=== PATIENT | male | born 1990 | race Two or more races ===

== ENCOUNTER 2022-12-07 16:20 | Outpatient (AMB) | payer OTHER, SELFPAY ==
--- NOTE | 2022-12-07 16:20 | MHC.PC.OV ---
Vital Signs 12/07/22 16:21 12/07/22 16:52 Height 5 ft 9 in Weight 198 lb BMI 29.2 BP 146/80 H 132/80 Blood Pressure Location Lt brachial Lt brachial Position Sitting Sitting Pulse 77 Pulse Source Pulse Oximeter Temp Source Skin Pulse Oximetry (%) 100 Oxygen Delivery Method Room Air Intake Visit Reasons: Annual PE Intake Note: Patient is here today for a physical. 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 Last seen by [facility] Santana in 2019. Medical history significant for high cholesterol-patient reports that he was on simvastatin and he stopped taking it long time ago due to feeling drowsy and sleepy, hypertension. Patient has an upcoming eye exam. Dentist up-to-date. Tetanus vaccine up-to-date. Patient reports that his mother has Alzheimer's and he would like to be tested for this as well, reports concussions in childhood. Denies memory changes. Denies shortness of breath or chest pain. [facility] Medical History History of concussion High cholesterol Surgical History No pertinent past surgical history Family History Father History of open heart surgery Mother No problems noted. Social History Patient Tobacco Use Status: Never used Tobacco service: No Cognitive needs: No Hearing needs: No Vision needs: No Questionnaire PHQ-9 Over the last 2 weeks, how often have you been bothered by any of the following problems? 1. Little interest or pleasure in doing things: not at all 2. Feeling down, depressed, or hopeless: not at all 3. Trouble falling or staying asleep, or sleeping too much: not at all 4. Feeling tired or having little energy: not at all 5. Poor appetite or overeating: not at all 6. Feeling bad about yourself - or that you are a failure or have let yourself or your family down: not at all 7. Trouble concentrating on things, such as reading the newspaper or watching television: not at all 8. Moving or speaking so slowly that other people could have noticed. Or the opposite - being so fidgety or restless that you have been moving around a lot more than usual: not at all 9. Thoughts that you would be better off or of hurting yourself in some way: not at all Total score: 0 Depression Screening Interpretation: Negative 36497 - PHQ-9 Billing: Yes Source: Developed by Drs. Yohannes Fabian, Nelly Gill, Brendan Handley and colleagues, with an educational joyce from [employer]. Thrive Questionnaire Date Thrive assessed: 12/07/22 I am a: Patient What is your living situation today?: I have a steady place to live Within the past 12 months, did the food you bought not last and you didn't have the money to get more?: Never true Within the past 12 months, did you worry whether your food would run out before you got money to buy more?: Never true Do you have trouble paying for medicines?: No Do you have trouble getting transportation to medical appointments?: No Do you have trouble paying your heating and electricity bill?: No Do you have trouble taking care of your child, family member or friend?: No Do you have trouble with day-to-day activities such as bathing, preparing meals, shopping, managing finances, etc.?: No Are you currently unemployed and looking for a job?: No Are you interested in more education?: No Currently or been in a relationship where the following occur: no concerns reported AUDIT C Alcohol Use Questionnaire (AUDIT-C) 1. How often do you have a drink containing alcohol?: Never 3. How often do you have six or more drinks on one occasion?: Never Total Score: 0 Score Reviewed/Action Taken: No BOBO-7 AMB Questionnaire BOBO-7 Date BOBO - 7 assessed: 12/07/22 Feeling nervous, anxious, or on edge: 0 = Not at all Not being able to stop or control worryin = Not at all Worrying too much about different things: 0 = Not at all Trouble relaxin = Not at all Being so restless that it is hard to sit still: 0 = Not at all Becoming easily annoyed or irritable: 0 = Not at all Feeling afraid as if something awful might happen: 0 = Not at all Total BOBO-7 score (0-4 normal; 5-9 mild; 10-14 moderate; 15-21 severe): 0 Source: Developed by Drs. Yohannes Fabian, Nelly Gill, Brendan Handley and colleagues, with an educational joyce from [employer]. BOBO-7 Assessment Billing BOBO-7 Assessment Tool: BOBO-7 Assessment 33153 Review of Systems Const Denies body aches, Denies chills, Denies fever(s) and Denies headache(s) Eyes Denies blurry vision and Denies change in vision ENT Denies dizziness, Denies otalgia, Denies headache(s), Denies nasal discharge, Denies sinus pain and Denies sore throat Card Denies chest pain, Denies edema, Denies lightheadedness and Denies dyspnea Resp Denies cough, Denies dyspnea and Denies wheezing GI Denies abdominal pain, Denies constipation, Denies diarrhea, Denies nausea and Denies vomiting Denies dysuria Musc Denies myalgias Skin/Breast Denies rash Neuro Denies dizziness and Denies headache(s) Aller/Immun Denies wheezing Physical exam (Primary Care) Vital Signs: Last Vital Signs Pulse 77 12/07/22 16:21 BP 132/80 12/07/22 16:52 Pulse Ox 100 12/07/22 16:21 Oxygen Delivery Method Room Air 12/07/22 16:21 BMI result Body Mass Index 29.2 Tobacco/Smoking Status: Tobacco use Status Tobacco use date assessed 12/07/22 12/07/22 16:22 Patient Tobacco Use Status Never used Tobacco 12/07/22 16:22 PHQ-9: PHQ-9 Score PHQ-9: Total score 0 12/07/22 16:43 Depression Screening Interpretation: Negative Thrive Assessment: Date of Thrive Assessment Date Thrive assessed 12/07/22 12/07/22 16:22 Currently or been in a relationship where the following occur: no concerns reported Const General: cooperative and no acute distress Orientation/consciousness: patient oriented x3 HENMT Head: Yes normocephalic and Yes atraumatic Ears: TM's normal bilaterally Face and sinus: Yes sinuses nontender Mouth: oropharynx normal and moist mucous membranes Throat: Yes posterior oropharynx normal Eyes General: appearance normal, both eyes and all related structures Pupils: Equal, round and reactive pupils present EOM: EOMs intact bilaterally Neck Neck: Yes normal visual inspection, Yes full ROM and Yes no lymphadenopathy Thyroid: Thyroid normal Resp Effort & Inspection: normal respiratory effort and able to speak in complete sentences Auscultation: clear to auscultation bilaterally, no crackles, no rales, no rhonchi and no wheezes Cardio Rate: regular rate Rhythm: regular rhythm Heart sounds: S1 normal heart sound present, S2 normal heart sound present and no murmurs GI Palpation (GI): Soft to palpation, not firm, nontender, no guarding, not rigid and no hepatosplenomegaly Auscultation: normal bowel sounds General: No CVA tenderness Back/Spine/Pelvis Back: No CVA tenderness Skin General skin exam: no rashes or lesions noted Neuro General: patient oriented x3 Cranial nerves: Yes Equal, round and reactive pupils present Gait exam (Neuro): Normal gait present Extrem General: Yes full ROM and No edema Assessment and Plan Assessment & Plan (1) Family history of Alzheimer's disease: Code(s): Z82.0 - Family history of epilepsy and other diseases of the nervous system Plan: Neurology referral for testing per patient's request (2) HTN (hypertension): Code(s): I10 - Essential (primary) hypertension Plan: Goal BP equal or less than 140/90 Continue hydrochlorothiazide Low-sodium diet (3) High cholesterol: Code(s): E78.00 - Pure hypercholesterolemia, unspecified Plan: Low-cholesterol diet Will check lipid panel (4) Annual physical exam: Code(s): Z00.00 - Encounter for general adult medical examination without abnormal findings Orders: Orders Vitamin B12 and Folate 12/07/22 I10 - Essential (primary) hypertension TSH reflex Free T4 09/22/23 I10 - Essential (primary) hypertension Lipid Panel 12/07/22 E78.00 - Pure hypercholesterolemia, unspecified Comprehensive [place]. Panel Fast 12/07/22 I10 - Essential (primary) hypertension Complete Blood Count Auto Diff 12/07/22 I10 - Essential (primary) hypertension Vitamin D 25-OH Total 12/07/22 I10 - Essential (primary) hypertension Referrals Neurology Referral Z82.0 - Family history of epilepsy and other diseases of the nervous system Medications: Refilled hydrochlorothiazide 12.5 mg PO QAM 90 tabs 1RF 90 days I10 - Essential (primary) hypertension Coding Level of Care Code Est Pt Prev Care 18-39y([id number]) Diagnoses Family history of Alzheimer's disease Z82.0 HTN (hypertension) I10 High cholesterol E78.00 Annual physical exam Z00.00 Additional Codes BOBO-7 Assessment Billing - BOBO-7 Assessment Tool: BOBO-7 Assessment 31300 ([id number])
[2022-12-07 16:21] VITALS: BP 146/80; PULSE 77; O2SAT 100; BMI 29.2
[2022-12-07 16:52] VITALS: BP 132/80
== END 2022-12-07 17:17 | disposition home or self-care (01) ==
PROVIDERS: PCP Physician Assistant; Visit Provider Nurse Practitioner Family
DX: Z82.0 Family history of epilepsy and other diseases of the nervous system (principal); I10 Essential (primary) hypertension; E78.00 Pure hypercholesterolemia, unspecified; Z00.00 Encounter for general adult medical examination without abnormal findings
CPT/HCPCS: 99395

== ENCOUNTER 2023-04-01 07:11 | Outpatient (REF) | payer OTHER, SELFPAY ==
[2023-04-01 07:25] LABS: MANUAL DIFF FLAG NO
[2023-04-01 07:47] LABS: Basophils Percent Auto 0.6 % (0-2); Eosinophils Absolute Auto 0.1 X10*3/uL (0.0-0.4); Eosinophils Percent Auto 1.8 % (0-4); Hemoglobin 15.5 g/dl (14.0-18.0); Imm Gran Abs Auto 0.02 X10*3/uL (0.00-0.03); Imm Gran Pct Auto 0.3 % (0.0-0.4); Lymphocytes Absolute Auto 2.5 X10*3/uL (1.2-4.9); Lymphocytes Percent Auto 36.3 % (20-40); Mean Corpuscular Hemoglobin 28.7 pg (27.0-33.0); Mean Corpuscular Volume 86.9 fL (80.0-98.0); Mean Platelet Volume 10.2 fL (9.4-12.4); Monocytes Absolute Auto 0.3 X10*3/uL (0.1-1.2); Neutrophils Absolute Auto 3.8 x10*3/uL (2.0-8.3); Platelet Count 339 X10*3/uL (160-400); Red Blood Count 5.41 X10*6/uL (4.60-5.80); Red Cell Distribution Width 12.6 % (11.0-16.0); White Blood Count 6.8 X10*3/uL (4.8-10.8)
[2023-04-01 08:07] LABS: Alanine Aminotransferase 50 U/L (0-40); Albumin Level 4.6 g/dL (3.5-5.0); Alkaline Phosphatase 61 U/L (39-117); Anion Gap 13 (12-20); Aspartate Amino Transferase 24 U/L (5-37); Bilirubin Total 0.6 mg/dL (0.0-1.0); Blood Urea Nitrogen 15 mg/dL (9-16); Calcium 10.1 mg/dL (8.4-10.2); Carbon Dioxide 29 mmol/L (22-29); Chloride 103 mmol/L (96-108); Cholesterol 192 mg/dL (<200); Estimated Glomerular Filt Rate > 60; Glucose Fasting 92 mg/dL (60-99); HDL Cholesterol 40 mg/dL (>40); LDL Cholesterol Calculated 127 mg/dL (<100); Potassium 4.1 mmol/L (3.3-5.1); Sodium 141 mmol/L (135-145); Total Protein 8.1 g/dL (6.5-8.0); Triglycerides 125 mg/dL (<150)
[2023-04-01 08:21] LABS: Creatinine Urine 267.95 mg/dL; Microalbum/Creatinine Ratio Ur 5.9 ug/mg cr (<30)
[2023-04-01 08:25] LABS: TSH reflex Free T4 1.37 uIU/mL (0.32-4.0); Vitamin D 25-OH Total 38.7 ng/mL (>30)
[2023-04-01 08:38] LABS: Folate 12.7 ng/mL (> or = 4.0); Vitamin B12 367 pg/mL (200-900)
== END 2023-04-01 07:12 | disposition home or self-care (01) ==
LOC: HO.LAB 07:11
PROVIDERS: Nurse Practitioner Family; PCP Physician Assistant; Visit Provider Physician Assistant
DX: I10 Essential (primary) hypertension (principal); E78.00 Pure hypercholesterolemia, unspecified
CPT/HCPCS: 36415; 80053; 80061; 82043; 82306; 82570; 82607; 82746; 84443; 85025

== ENCOUNTER 2023-04-19 14:50 | Outpatient (AMB) | payer OTHER, SELFPAY ==
--- NOTE | 2023-04-19 15:00 | A.OFFVIS_ITS ---
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 His mother has it and two aunts Allergies No Known Allergies Allergy (Verified 04/19/23 15:08) Medication List - Last Reviewed 04/19/23 by Sunitha Melara CMA hydrochlorothiazide 12.5 mg PO QAM 90 days HPI HPI Comments History of Present Illness Details Right handed 32-year-old male presents for neurological evaluation to discuss family h/o Alzheimer's disease, as he recently read that AD can be genetic. His mother is currently 69 yrs old. She started having cognitive difficulties in her early 50s. She also has history of seizures and head injury. She started having difficulty completing sentences, then difficulty doing daily activities. At this point, she speaks only jibberish, does not have meaningful interaction, has become non-ambulatory, and is Dep for all ADLs including feeding. she is living at home w/ her who cares for her w/ his family and STUDENT MINISTRY PASTOR support. Her 2 older sisters also have/had AD. One has passed. The other is still living, and a similar condition to his mother in [place]. Both sisters had onset and development of progressive cognitive difficulties similar to his mother. He does know that many of his family has drank alcohol, and is reliant on multiple medications. His mother health care is managed by [facility]. His stepfather knows these details. He has not yet talked to his stepfather about his concern for genetic testing. Pt has 1 brother- who is 50, 1 sister- 45. He states they are healthy. Pt himself has been dealing w/ increased stress- has had some recent deaths in the family. He has no specific cognitive concerns. Does have some sleep maintenance difficulties, is prone to ruminating thoughts. Does try to maintain a healthy lifestyle and exercises. He avoids alcohol and substance use. [facility] Medical History History of concussion High cholesterol Surgical History No pertinent past surgical history Family History (Updated 04/19/23 @ 15:24 by Sunitha Melara CMA) Father History of open heart surgery FH: HTN (hypertension) Mother No problems noted. Mother Epilepsy High cholesterol Alzheimer disease Paternal Aunt Alzheimer disease Paternal Aunt Alzheimer disease Social History Patient Tobacco Use Status: Never used Tobacco service: No Cognitive needs: No Hearing needs: No Vision needs: No Review of Systems Const All systems reviewed & are unremarkable except as noted in HPI and below Physical Exam Vital Signs: Last Vital Signs Pulse 97 04/19/23 15:11 BP 134/70 04/19/23 15:11 Pulse Ox 98 04/19/23 15:11 Oxygen Delivery Method Room Air 04/19/23 15:11 BMI result Body Mass Index 26.9 Const General: cooperative and no acute distress Orientation/consciousness: patient oriented x3 HEENT Head: Yes normocephalic Resp Effort & Inspection: normal respiratory effort and able to speak in complete sentences Neuro General: patient oriented x3, moves all extremities and CN's II-XI intact bilaterally Gait exam (Neuro): Normal gait present Psych Appearance: grossly normal Mental Status: mental status grossly normal Speech and movement: Normal speech and movement present Affect: normal affect Attitude: cooperative Assessment & Plan Assessment & Plan (1) Family history of Alzheimer's disease: Code(s): Z82.0 - Family history of epilepsy and other diseases of the nervous system (2) Sleep difficulties: Code(s): G47.9 - Sleep disorder, unspecified Plan Will refer patient for [facility] genetics consult. Advise that it would be optimal if his mother to be evaluated as well. Encourage patient to discuss his desire for genetic testing with his family, explained that different family members may or may not want to know the results of this testing. Information also shared on [facility] in [facility]. For general prevention of cognitive disorders: Patient advised to engage in regular physical activity, maintain a healthy weight, maintain a healthy blood pressure, cholesterol level, and blood sugar levels. Information shared on sleep hygiene and cognitive behavioral therapy for insomnia resources, which may help manage his sleep and stress a little better. Follow-up in 6 months or sooner as needed Orders: Referrals Genetics Referral Z82.0 - Family history of epilepsy and other diseases of the nervous system Coding Level of Care Code New Pt Level 3 (27746) Diagnoses Family history of Alzheimer's disease Z82.0 Sleep difficulties G47.9
[2023-04-19 15:11] VITALS: BP 134/70; PULSE 97; O2SAT 98; BMI 26.9
== END 2023-04-19 16:07 | disposition home or self-care (01) ==
PROVIDERS: PCP Physician Assistant; Visit Provider Nurse Practitioner Family
DX: Z82.0 Family history of epilepsy and other diseases of the nervous system (principal); G47.9 Sleep disorder, unspecified
CPT/HCPCS: 99203

== ENCOUNTER → 2023-04-19 14:50 | Outpatient (BNVA) | payer OTHER, SELFPAY | PROVIDERS: PCP Physician Assistant; Visit Provider Nurse Practitioner Family ==

== ENCOUNTER 2023-05-02 08:42 | Outpatient (AMB) | payer OTHER, SELFPAY ==
[2023-05-02 08:46] VITALS: BP 148/92; PULSE 61; O2SAT 98; BMI 27.6
--- NOTE | 2023-05-02 08:46 | MHC.PC.OV ---
Vital Signs 05/02/23 08:46 05/02/23 09:29 Height 5 ft 9 in Weight 187 lb BMI 27.6 BP 148/92 H 128/88 Blood Pressure Location Lt brachial Position Sitting Pulse 61 Pulse Source Pulse Oximeter Pulse Oximetry (%) 98 Oxygen Delivery Method Room Air Intake Visit Reasons: stomach issue(s) Intake Note: pt states mid abdominal pain and unintentional weight loss X1 month. no bowel changes or issues. 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 He reports he has been under lot of stress as of late. Has been suffering with anxiety due to family issues in her recent in his family. He reports he has had having low appetite and some abdominal discomfort which has likely cause his weight loss. Of note does suffer from irritable bowel syndrome as well. He is now interested in starting mental health therapy in an as needed medication for his anxiety. [facility] Medical History History of concussion High cholesterol Surgical History No pertinent past surgical history Family History Father History of open heart surgery FH: HTN (hypertension) Mother No problems noted. Mother Epilepsy High cholesterol Alzheimer disease Paternal Aunt Alzheimer disease Paternal Aunt Alzheimer disease Social History Patient Tobacco Use Status: Never used Tobacco service: No Cognitive needs: No Hearing needs: No Vision needs: No Questionnaire PHQ-9 Over the last 2 weeks, how often have you been bothered by any of the following problems? 1. Little interest or pleasure in doing things: not at all 2. Feeling down, depressed, or hopeless: not at all 3. Trouble falling or staying asleep, or sleeping too much: not at all 4. Feeling tired or having little energy: not at all 5. Poor appetite or overeating: not at all 6. Feeling bad about yourself - or that you are a failure or have let yourself or your family down: not at all 7. Trouble concentrating on things, such as reading the newspaper or watching television: not at all 8. Moving or speaking so slowly that other people could have noticed. Or the opposite - being so fidgety or restless that you have been moving around a lot more than usual: not at all 9. Thoughts that you would be better off or of hurting yourself in some way: not at all Total score: 0 Depression Screening Interpretation: Negative Depression Screening Done: Yes 65474 - PHQ-9 Billing: Yes Source: Developed by Drs. Yohannes Fabian, Nelly Gill, Brendan Handley and colleagues, with an educational joyce from [employer]. Thrive Questionnaire Date Thrive assessed: 05/02/23 AUDIT C Alcohol Use Questionnaire (AUDIT-C) 1. How often do you have a drink containing alcohol?: Never 3. How often do you have six or more drinks on one occasion?: Never Total Score: 0 Score Reviewed/Action Taken: No BOBO-7 AMB Questionnaire BOBO-7 Date BOBO - 7 assessed: 05/02/23 Source: Developed by Drs. Yohannes Fabian, Nelly Gill, Brendan Handley and colleagues, with an educational joyce from [employer]. Review of Systems Const Denies headache(s) Eyes Denies loss of vision ENT Denies vertigo, Denies dizziness, Denies headache(s) and Denies sore throat Card Denies chest pain, Denies leg edema and Denies lightheadedness Resp Denies cough, Denies hemoptysis and Denies wheezing GI Denies abdominal pain, Denies melena, Denies constipation, Denies diarrhea and Denies vomiting Denies dysuria, Denies urinary frequency and Denies urinary urgency Musc Denies arthralgias, Denies joint swelling, Denies numbness and Denies tingling Neuro Denies Abnormal speech present, Denies behavioral changes, Denies vertigo, Denies dizziness, Denies headache(s), Denies loss of vision, Denies memory loss, Denies numbness and Denies tingling Psych Denies anxiety, Denies behavioral changes, Denies depression, Denies memory loss and Denies panic attacks Mehdi/Lymph Denies easy bleeding and Denies easy bruising Aller/Immun Denies wheezing Physical exam (Primary Care) Vital Signs: Last Vital Signs Pulse 61 05/02/23 08:46 BP 128/88 05/02/23 09:29 Pulse Ox 98 05/02/23 08:46 Oxygen Delivery Method Room Air 05/02/23 08:46 BMI result Body Mass Index 27.6 Tobacco/Smoking Status: Tobacco use Status Tobacco use date assessed 05/02/23 05/02/23 08:47 Patient Tobacco Use Status Never used Tobacco 05/02/23 08:47 PHQ-9: PHQ-9 Score PHQ-9: Total score 0 05/02/23 09:20 Depression Screening Interpretation: Negative Thrive Assessment: Date of Thrive Assessment Date Thrive assessed 05/02/23 05/02/23 08:47 Const General: healthy appearing, no acute distress, alert and awake Nutritional Appearance: well nourished Orientation/consciousness: oriented to person, oriented to place and oriented to time HENMT Ears: TM's normal bilaterally General nose exam: Normal nasal mucous membranes and turbinates present Eyes Conjunctivae: conjunctivae normal Sclerae: sclerae normal Pupils: Equal, round and reactive pupils present Neck Neck: Yes no lymphadenopathy and Yes no JVD Thyroid: Thyroid normal Carotids: no bruits Resp Effort & Inspection: normal respiratory effort and not tachypneic Auscultation: no crackles, no rales, no rhonchi and no wheezes Cardio Rate: regular rate Rhythm: regular rhythm Heart sounds: no murmurs and normal S1 and S2 GI Palpation (GI): Soft to palpation, nontender, no hepatomegaly and no splenomegaly Auscultation: normal bowel sounds Skin General skin exam: no rashes or lesions noted and dry skin Neuro General: oriented to person, oriented to place and oriented to time Cranial nerves: Yes Equal, round and reactive pupils present Speech: No Abnormal speech present Gait exam (Neuro): Normal gait present Motor exam (neuro): no tremor noted Extrem Right upper extremity: full ROM Left upper extremity: full ROM Right lower extremity: full ROM; no edema Left lower extremity: full ROM; no edema Psych Mental Status: mental status grossly normal Speech and movement: Normal speech and movement present Affect: normal affect Attitude: cooperative Thought process: Normal thought process present Assessment and Plan Assessment & Plan (1) BOBO (generalized anxiety disorder): Code(s): F41.1 - Generalized anxiety disorder Plan: He reports he has been dealing with lot of anxiety as of late. Has been taking a toll in his life and resulting GI issues thus weight loss. He wants to be a better father to his daughter. He is interested in cognitive behavioral therapy in starting medication to help him with anxiety as needed. (2) MDD (major depressive disorder), recurrent episode, moderate: Code(s): F33.1 - Major depressive disorder, recurrent, moderate Plan: Patient does have history of major depressive disorder and again is interested in talking to a mental health therapist. (3) High cholesterol: Code(s): E78.00 - Pure hypercholesterolemia, unspecified Plan: Patient has a history of cholesterol, most recent fasting lipid panel showing much improved total cholesterol and LDL. He will continue lifestyle modifications to reduce his high cholesterol. Goal total cholesterol to be below 200, LDL be below 160 Coding Level of Care Code Est Pt Level 4 (40508) Diagnoses BOBO (generalized anxiety disorder) F41.1 MDD (major depressive disorder), recurrent episode, moderate F33.1 High cholesterol E78.00
[2023-05-02 09:29] VITALS: BP 128/88
== END 2023-05-02 09:35 | disposition home or self-care (01) ==
PROVIDERS: PCP Physician Assistant; Visit Provider Physician Assistant
DX: F41.1 Generalized anxiety disorder (principal); F33.1 Major depressive disorder, recurrent, moderate; E78.00 Pure hypercholesterolemia, unspecified
CPT/HCPCS: 99214

== ENCOUNTER 2023-06-04 09:24 | Outpatient (AMB) | payer OTHER, SELFPAY ==
--- NOTE | 2023-06-04 09:23 | A.OFFPC_ITS ---
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 At last visit we did discuss his signs symptoms of generalized anxiety disorder. He was willing to try as needed hydroxyzine. He reports his anxiety has been much better, has been exercising more which has been helpful as well. Has been set up with a mental therapist will be starting soon. [facility] Medical History History of concussion High cholesterol Surgical History No pertinent past surgical history Family History Father History of open heart surgery FH: HTN (hypertension) Mother No problems noted. Mother Epilepsy High cholesterol Alzheimer disease Paternal Aunt Alzheimer disease Paternal Aunt Alzheimer disease Social History Patient Tobacco Use Status: Never used Tobacco service: No Cognitive needs: No Hearing needs: No Vision needs: No Questionnaire Thrive Questionnaire Date Thrive assessed: 05/02/23 BOBO-7 AMB Questionnaire BOBO-7 Date BOBO - 7 assessed: 05/02/23 Source: Developed by Drs. Yohannes Fabian, Nelly Gill, Brendan Handley and colleagues, with an educational joyce from [employer]. Review of Systems Const Denies headache(s) Eyes Denies loss of vision ENT Denies vertigo, Denies dizziness, Denies headache(s) and Denies sore throat Card Denies chest pain, Denies leg edema and Denies lightheadedness Resp Denies cough, Denies hemoptysis and Denies wheezing GI Denies abdominal pain, Denies melena, Denies constipation, Denies diarrhea and Denies vomiting Denies dysuria, Denies urinary frequency and Denies urinary urgency Musc Denies arthralgias, Denies joint swelling, Denies numbness and Denies tingling Neuro Denies behavioral changes, Denies vertigo, Denies dizziness, Denies headache(s), Denies loss of vision, Denies memory loss, Denies numbness and Denies tingling Psych Reports anxiety, Denies behavioral changes, Denies depression, Denies memory loss and Denies panic attacks Mehdi/Lymph Denies easy bleeding and Denies easy bruising Aller/Immun Denies wheezing Physical exam (Primary Care) Tobacco/Smoking Status: Tobacco use Status Tobacco use date assessed 05/02/23 06/04/23 09:24 Patient Tobacco Use Status Never used Tobacco 06/04/23 09:24 Thrive Assessment: Date of Thrive Assessment Date Thrive assessed 05/02/23 06/04/23 09:24 Telehealth Telehealth Location of provider rendering services: practice address Location of patient: address on file Patient Identification confirmed using: Name, : Yes Telehealth method: voice only Patient verbally consented to treatment: Yes Patient verbally consented to billing insurance company: Yes Patient informed of any privacy concerns related to visit: Yes Minutes spent on Phone/Video with Pt.: 11 Assessment and Plan Assessment & Plan (1) BOBO (generalized anxiety disorder): Code(s): F41.1 - Generalized anxiety disorder Plan: Reports he has been doing much better with anxiety. Has been taking hydroxyzine on as needed basis which has been helping him sleep. He would like a refill on medication. Has gotten a call from mental health therapy group and will start mental health therapy in near future. Medications: Changed From hydroxyzine HCl 10 mg PO DAILY 10 days PRN 10 tabs 0RF anxiety F41.1 - Generalized anxiety disorder, F41.9 - Anxiety disorder, unspecified To hydroxyzine HCl 10 mg PO DAILY 30 days PRN 30 tabs 2RF anxiety F41.1 - Generalized anxiety disorder, F41.9 - Anxiety disorder, unspecified Coding Level of Care Code Tele Est Pt Level 3 (78805) Diagnoses BOBO (generalized anxiety disorder) F41.1
== END 2023-06-04 10:14 | disposition home or self-care (01) ==
LOC: HO.HMGH 09:24
PROVIDERS: PCP Physician Assistant; Visit Provider Physician Assistant
DX: F41.1 Generalized anxiety disorder (principal)
CPT/HCPCS: 99213

== ENCOUNTER 2023-09-20 15:12 | Outpatient (AMB) | payer OTHER, SELFPAY ==
--- NOTE | 2023-09-20 15:31 | MHC.OFFVIS ---
Vital Signs 09/20/23 15:41 Height 5 ft 9 in Weight 194 lb 2 oz BMI 28.7 BP 124/80 Blood Pressure Location Lt brachial Position Sitting Pulse 67 Pulse Source Pulse Oximeter Temp 97 F Pulse Oximetry (%) 97 Oxygen Delivery Method Room Air Intake Visit Reasons: 6 mo f/u-LVM Intake Note: Patient presents for 6 months f/u. Allergies No Known Allergies Allergy (Verified 09/20/23 15:40) HPI Comments Details: 32-yr-old male presents for f/u visit. Pt denies any significant interval medical changes. Pt reports he has been doing well. He is less anxious. He is sleeping better. His memory is ok. He exercises most mornings- rides a bike for 10-15 minutes, stretches. 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 He is on wait list for the [facility] appointment. His mother is now in a usp. [facility] Medical History History of concussion High cholesterol Surgical History No pertinent past surgical history Family History Father History of open heart surgery FH: HTN (hypertension) Mother No problems noted. Mother Epilepsy High cholesterol Alzheimer disease Paternal Aunt Alzheimer disease Paternal Aunt Alzheimer disease Social History Patient Tobacco Use Status: Never used Tobacco service: No Cognitive needs: No Hearing needs: No Vision needs: No Physical Exam Vital Signs: Last Vital Signs Temp 97 F 09/20/23 15:41 Pulse 67 09/20/23 15:41 BP 124/80 09/20/23 15:41 Pulse Ox 97 09/20/23 15:41 Oxygen Delivery Method Room Air 09/20/23 15:41 BMI result Body Mass Index 28.7 Const General: cooperative and no acute distress Orientation/consciousness: patient oriented x3 Resp Effort & Inspection: normal respiratory effort and able to speak in complete sentences Neuro General: patient oriented x3 Cranial nerves: Yes CN's II-XII intact bilaterally Cognition (Neuro): normal cognition Psych Appearance: grossly normal Mental Status: mental status grossly normal Speech and movement: Normal speech and movement present Affect: normal affect Attitude: cooperative Assessment & Plan Assessment & Plan (1) Family history of Alzheimer's disease: Code(s): Z82.0 - Family history of epilepsy and other diseases of the nervous system Category: Medical (2) BOBO (generalized anxiety disorder): Code(s): F41.1 - Generalized anxiety disorder Category: Medical Plan [facility] genetics consult pending. Advise that it would be optimal if his mother to be evaluated as well. Information previously shared on [place] [facility]. ? For general prevention of cognitive disorders: Patient advised to engage in regular physical activity, maintain a healthy weight, maintain a healthy blood pressure, cholesterol level, and blood sugar levels. Information previously shared on sleep hygiene and cognitive behavioral therapy for insomnia resources, which may help manage his sleep and stress a little better. ? Follow-up in 6 months or sooner as needed Coding Level of Care Code Est Pt Level 3 (52832) Diagnoses Family history of Alzheimer's disease Z82.0 BOBO (generalized anxiety disorder) F41.1
[2023-09-20 15:41] VITALS: BP 124/80; PULSE 67; TEMP 36.1; O2SAT 97; BMI 28.7
== END 2023-09-20 16:29 | disposition home or self-care (01) ==
PROVIDERS: PCP Physician Assistant; Visit Provider Nurse Practitioner Family
DX: Z82.0 Family history of epilepsy and other diseases of the nervous system (principal); F41.1 Generalized anxiety disorder
CPT/HCPCS: 99213

== ENCOUNTER → 2023-09-20 15:12 | Outpatient (BNVA) | payer OTHER, SELFPAY | PROVIDERS: PCP Physician Assistant; Visit Provider Nurse Practitioner Family ==

== ENCOUNTER 2023-12-16 07:52 | Outpatient (AMB) | payer OTHER, SELFPAY ==
[2023-12-16 08:00] VITALS: BP 118/82; PULSE 52; O2SAT 99; BMI 27.9
--- NOTE | 2023-12-16 08:00 | A.OFFPC_ITS ---
Vital Signs 12/16/23 08:00 Height 5 ft 9 in Weight 189 lb BMI 27.9 BP 118/82 Blood Pressure Location Lt brachial Position Sitting Pulse 52 Pulse Source Pulse Oximeter Pulse Oximetry (%) 99 Oxygen Delivery Method Room Air Intake Visit Reasons: PE Allergies No Known Allergies Allergy (Verified 12/16/23 08:08) Medication List - Last Reconciled 12/16/23 by Antoni Sheth PA-C No Known Home Meds Tobacco use date assessed: 12/16/23 Dental Screening Dental Screen Date: 12/16/23 Did you have a dental visit in the last 12 months?: Yes Did you have a dental problem in the last 6 months where you did not have access to dental care?: No Was dental information given to patient?: Patient has dentist HPI PE HPI Details Patient is a 32-year-old male here today for routine annual physical. Patient has a past medical history significant for borderline high cholesterol, hypertension, anxiety and depression. PATIENT REPORTS HIS MOTHER RECENTLY AT AGE 68 FROM ALZHEIMER'S DISEASE. concerns--> report having a foaming urine as of late, concerned about his kidneys Also would like to be checked for STDs .. Hypertension: Patient has been able to manage his blood pressure with diet and lifestyle modifications. Borderline Hyperlipidemia: Patient has been able to reduce his total cholesterol and LDL with lifestyle and dietary modifications Vaccine: Up-to-date with COVID, tetanus, considering flu shot this flu season. Laboratory Tests 01/17/18 03/07/19 04/01/23 07:30 10:15 07:23 Cholesterol 238 213 D 192 PFSH Medical History History of concussion High cholesterol Surgical History No pertinent past surgical history Family History (Updated 12/16/23 @ 08:12 by Antoni Sheth PA-C) Father History of open heart surgery FH: HTN (hypertension) Mother Mother Epilepsy High cholesterol Alzheimer disease Paternal Aunt Alzheimer disease Paternal Aunt Alzheimer disease Social History (Updated 12/16/23 @ 08:14 by Antoni Sheth PA-C) Alcohol intake: never Patient Tobacco Use Status: Never used Tobacco service: No Current occupational status: employed 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 1. Little interest or pleasure in doing things: not at all 2. Feeling down, depressed, or hopeless: not at all 3. Trouble falling or staying asleep, or sleeping too much: not at all 4. Feeling tired or having little energy: not at all 5. Poor appetite or overeating: not at all 6. Feeling bad about yourself - or that you are a failure or have let yourself or your family down: not at all 7. Trouble concentrating on things, such as reading the newspaper or watching television: not at all 8. Moving or speaking so slowly that other people could have noticed. Or the opposite - being so fidgety or restless that you have been moving around a lot more than usual: not at all 9. Thoughts that you would be better off or of hurting yourself in some way: not at all Total score: 0 Depression Screening Interpretation: Negative Depression Screening Done: Yes 19770 - PHQ-9 Billing: Yes Source: Developed by Drs. Yohannes Fabian, Nelly Gill, Brendan Handley and colleagues, with an educational joyce from [employer]. Thrive Questionnaire Date Thrive assessed: 05/02/23 I am a: Patient What is your living situation today?: I have a steady place to live Within the past 12 months, did the food you bought not last and you didn't have the money to get more?: Never true Within the past 12 months, did you worry whether your food would run out before you got money to buy more?: Never true Do you have trouble paying for medicines?: No Do you have trouble getting transportation to medical appointments?: No Do you have trouble paying your heating and electricity bill?: No Do you have trouble taking care of your child, family member or friend?: No Do you have trouble with day-to-day activities such as bathing, preparing meals, shopping, managing finances, etc.?: No Are you currently unemployed and looking for a job?: No Are you interested in more education?: Yes Please select the resources that you would like help with: None Currently or been in a relationship where the following occur: No concerns repo rted THRIVE Score: 0 AUDIT C Alcohol Use Questionnaire (AUDIT-C) 1. How often do you have a drink containing alcohol?: Never 2. How many drinks containing alcohol do you have on a typical day when you are drinking?: 1 or 2 (0) 3. How often do you have six or more drinks on one occasion?: Never Total Score: 0 BOBO-7 AMB Questionnaire BOBO-7 Date BOBO - 7 assessed: 12/16/23 Feeling nervous, anxious, or on edge: 0 = Not at all Not being able to stop or control worryin = Not at all Worrying too much about different things: 0 = Not at all Trouble relaxin = Not at all Being so restless that it is hard to sit still: 0 = Not at all Becoming easily annoyed or irritable: 0 = Not at all Feeling afraid as if something awful might happen: 0 = Not at all Total BOBO-7 score (0-4 normal; 5-9 mild; 10-14 moderate; 15-21 severe): 0 Source: Developed by Drs. Yohannes Fabian, Nelly Gill, Brendan Handley and colleagues, with an educational joyce from [employer]. BOBO-7 Assessment Billing BOBO-7 Assessment Tool: BOBO-7 Assessment 38038 Review of Systems Const Denies body aches, Denies chills, Denies excessive sweating, Denies fatigue, Denies fever(s) and Denies headache(s) Eyes Denies blurry vision ENT Denies dysphagia, Denies vertigo, Denies dizziness, Denies headache(s), Denies hearing loss and Denies tinnitus Card Denies chest pain, Denies chest pain with activity, Denies syncope, Denies irregular heart rhythm and Denies dyspnea Resp Denies chest congestion, Denies cough, Denies hemoptysis, Denies dyspnea and Denies wheezing GI Denies abdominal pain, Denies melena, Denies hematochezia, Denies coffee ground emesis, Denies dysphagia, Denies diarrhea, Denies nausea and Denies vomiting Denies difficulty urinating, Denies dysuria, Denies urinary frequency, Denies urinary hesitancy and Denies urinary urgency Musc Denies arthralgias, Denies limited range of motion, Denies muscle cramps and Denies muscle weakness Skin/Breast Denies rash and Denies skin ulcer Neuro Denies Abnormal speech present, Denies confusion, Denies vertigo, Denies dizziness, Denies syncope, Denies headache(s), Denies memory loss and Denies seizure-like activity Psych Denies anxiety, Denies confusion, Denies depression, Denies memory loss, Denies panic attacks and Denies paranoia Endo Denies excessive sweating, Denies fatigue, Denies flushing, Denies polydipsia and Denies polyuria Aller/Immun Denies wheezing Physical exam (Primary Care) Vital Signs: Last Vital Signs Pulse 52 12/16/23 08:00 BP 118/82 12/16/23 08:00 Pulse Ox 99 12/16/23 08:00 Oxygen Delivery Method Room Air 12/16/23 08:00 BMI result Body Mass Index 27.9 Tobacco/Smoking Status: Tobacco use Status Tobacco use date assessed 12/16/23 12/16/23 08:06 Patient Tobacco Use Status Never used Tobacco 12/16/23 08:00 PHQ-9: PHQ-9 Score PHQ-9: Total score 0 12/16/23 08:06 Depression Screening Interpretation: Negative Thrive Assessment: Date of Thrive Assessment Date Thrive assessed 05/02/23 12/16/23 08:00 Currently or been in a relationship where the following occur: No concerns reported Const General: cooperative, comfortable, no acute distress, alert and awake; No confusion Orientation/consciousness: oriented to person, oriented to place, patient oriented x3 and No confusion HENMT Head: Yes normocephalic Ears: external ears normal and TM's normal bilaterally Face and sinus: No sinus tenderness Mouth: Normal oral and palatal mucosa present and tongue normal Teeth and gingiva: dentition normal and gingiva normal Throat: Yes posterior oropharynx normal, Yes tonsils normal and Yes uvula midline Eyes Conjunctivae: conjunctivae normal Sclerae: sclerae normal Pupils: Equal, round and reactive pupils present EOM: EOMs intact bilaterally Direct Ophthalmoscopy: No no photophobia Neck Neck: Yes no lymphadenopathy, No tender and Yes no JVD Thyroid: Thyroid normal Carotids: no bruits Chest Chest palpation & inspection: no tenderness Resp Effort & Inspection: normal respiratory effort, no audible wheezes, not labored and no stridor Auscultation: no crackles, no rales, no rhonchi and no wheezes Cardio Jugular venous distension: no JVD Rate: regular rate, not bradycardic and not tachycardic Rhythm: regular rhythm Bruits: no carotid bruits Peripheral pulses: Peripheral pulses 2+ throughout GI Inspection: Yes normal to inspection, No abdominal wall ecchymosis and No visible herniation Palpation (GI): Soft to palpation, nontender, no guarding, not rigid and No hepatosplenomegaly present Auscultation: normoactive bowel sounds General: Yes no CVA tenderness Back/Spine/Pelvis Back: no CVA tenderness and No back tenderness Cervical Spine: cervical ROM normal Thoracic/Lumbar Spine: thoracic and lumbar spine normal to inspection, straight leg raise negative bilaterally, No thoraco-lumbar ROM limited and No lumbar spinal tenderness Skin Lesions: no lesions Rashes: no rashes Wounds: no wounds Neuro General: oriented to person, oriented to place, patient oriented x3, CN's II-XI intact bilaterally and No confusion Cranial nerves: Yes Equal, round and reactive pupils present and Yes Normal accommodation reflex present Cognition (Neuro): normal cognition Speech: No Abnormal speech present Gait exam (Neuro): Normal gait present Motor exam (neuro): 5/5 motor strength present throughout Extrem Right upper extremity: full ROM; no cyanosis Left upper extremity: full ROM; no cyanosis Right lower extremity: no edema Left lower extremity: no edema Psych Appearance: grossly normal Mental Status: mental status grossly normal Affect: normal affect Attitude: cooperative Thought process: Normal thought process present Assessment and Plan Assessment & Plan (1) Annual physical exam: Code(s): Z00.00 - Encounter for general adult medical examination without abnormal findings (2) HTN (hypertension): Code(s): I10 - Essential (primary) hypertension Qualifiers: Hypertension type: primary hypertension Qualified Code(s): I10 - Essential (primary) hypertension Plan: Patient's blood pressure acceptable today in office. Has a history of high blood pressure and has been able to manage his blood pressure with lifestyle dietary modifications. Goal blood pressures to remain below 140/90 (3) High cholesterol: Code(s): E78.00 - Pure hypercholesterolemia, unspecified Plan: Most recent lipid panel showing excellent control of his total cholesterol and LDL. Will continue on lifestyle and dietary modifications to control his cholesterol. LDL to remain below 160 Orders: Orders Complete Blood Count no Diff Today I10 - Essential (primary) hypertension Syphilis Screen Today Z11.3 - Encounter for screening for infections with a predominantly sexual mode of transmission Microalbumin, Random (w Creat) Today I10 - Essential (primary) hypertension Lipid Panel Today E78.00 - Pure hypercholesterolemia, unspecified Comprehensive [place]. Panel Fast Today I10 - Essential (primary) hypertension HIV Ab/Ag Today Z11.3 - Encounter for screening for infections with a predom inantly sexual mode of transmission CT NG by PCR Today Z20.2 - Contact with and (suspected) exposure to infections with a predominantly sexual mode of transmission Patient Instructions: Goal: Blood pressure to remain below 140/90 Barriers: Adherence to physical activity and healthy eating habits Coding Level of Care Code Est Pt Prev Care 18-39y(76869) Diagnoses Annual physical exam Z00.00 Primary hypertension I10 Hypertension type: primary hypertension High cholesterol E78.00 Additional Codes BOBO-7 Assessment Billing - BOBO-7 Assessment Tool: BOBO-7 Assessment [id number] ([id number])
== END 2023-12-16 08:25 | disposition home or self-care (01) ==
PROVIDERS: PCP Physician Assistant; Visit Provider Physician Assistant
DX: Z00.00 Encounter for general adult medical examination without abnormal findings (principal); I10 Essential (primary) hypertension; E78.00 Pure hypercholesterolemia, unspecified

== ENCOUNTER → 2023-12-16 07:52 | Outpatient (BNVA) | payer OTHER, SELFPAY | PROVIDERS: PCP Physician Assistant; Visit Provider Physician Assistant | DX: Z00.00 Encounter for general adult medical examination without abnormal findings (principal); I10 Essential (primary) hypertension; E78.00 Pure hypercholesterolemia, unspecified | CPT/HCPCS: 96127 ==

== ENCOUNTER 2024-07-10 14:16 | Outpatient (AMB) | payer OTHER, SELFPAY ==
--- NOTE | 2024-07-10 14:26 | MHC.OFFWIV ---
Intake Vital Signs 07/10/24 14:30 Height 5 ft 9 in Weight 194 lb BMI 28.6 BP 130/90 H Blood Pressure Location Rt brachial Position Sitting Pulse 59 Pulse Source Pulse Oximeter Pulse Oximetry (%) 99 Oxygen Delivery Method Room Air Intake Visit Reasons: EP STD testing Intake Note: Patient here for STD check that he like to have done every year. Patient Tobacco Use Status: Never used Tobacco Allergies No Known Allergies Allergy (Verified 07/10/24 14:31) Do you need a note to return to daycare/school/sports/work: No HPI HPI Comments History of Present Illness Details History of Present Illness - The patient is a 33-year-old male presenting for an annual sexual health screening focused on HIV and sexually transmitted infections. He has been having sex consistently with mult partners. - The patient has a history of undergoing routine annual testing for HIV and STIs, including gonorrhea and chlamydia. - No symptoms of sexually transmitted infections such as flulike symptoms, abnormal penile discharge, genital lesions, or systemic symptoms like fever have been reported. Physical Exam General: Cooperative, healthy appearing, comfortable, no acute distress and well developed Orientation: Patient oriented x3 Limitations: No limitations Head: Normal to inspection Ears: Hearing grossly normal bilaterally Nose: Normal External nose present Face and sinus: Normal facial exam Eyes: Appearance normal, both eyes and all related structures Neck: Normal visual inspection and Yes full ROM Respiratory: Normal respiratory effort and able to speak in complete sentences. Skin: No rashes or lesions noted Neuro: Patient oriented x3 Extremities: Normal to inspection COUNTS INCLUDE 234 BEDS AT THE [facility] Medical History History of concussion High cholesterol Surgical History No pertinent past surgical history Family History (Updated 12/16/23 @ 08:12 by Antoni Sheth PA-C) Father History of open heart surgery FH: HTN (hypertension) Mother Mother Epilepsy High cholesterol Alzheimer disease Paternal Aunt Alzheimer disease Paternal Aunt Alzheimer disease Social History (Updated 12/16/23 @ 08:14 by Antoni Sheth PA-C) Alcohol intake: never Patient Tobacco Use Status: Never used Tobacco service: No Current occupational status: employed 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 However, patient currently has no symptoms indicative of an STI, and there were no confirmed exposures since his last negative test a year ago. Jaime will receive follow-up communication on Saturday regarding his test results to ensure continuity and a proactive approach in sexual health management. Patient was informed and verbally consented to the use of an ambient scribe for clinic note documentation during this visit. Orders: Orders CT NG by PCR Today Z20.2 - Contact with and (suspected) exposure to infections with a predominantly sexual mode of transmission HIV Ab/Ag Today Z20.2 - Contact with and (suspected) exposure to infections with a predominantly sexual mode of transmission Coding Level of Care Code Est Pt Level 3 (35043) Diagnoses Possible exposure to STD Z20.2
[2024-07-10 14:30] VITALS: BP 130/90; PULSE 59; O2SAT 99; BMI 28.6
--- OUTSIDE RECORDS SUMMARY | 2024-07-10 14:56 | XMS_ITS | Clinical Summary ---
Author Organization [facility] Address [address] [place] [phone] Phone Care Team Providers Care Historic Sites Supervisor Name Role Phone Unavailable Primary Care Provider Unavailabl e Social History Tobacco Use Types Packs/Day Years Used Date Smoking Tobacco: Never Assessed Sex and Gender Information Value Date Recorded Sex Assigned at Not on file Legal Sex Male 4:43 PM EDT Gender Identity Not on file Sexual Orientation Not on file Plan of Treatment Health Maintenance Due Date Last Done Comments MMR Vaccines (1 of 1 - Stand tyrese series) 12/30/1991 Varicella Vaccines (1 of 2 - 13+ 2-dose series) 12/30/2003 DTaP,Tdap,and Td Vaccines (1 - Tdap) 2008 Hepatitis B Vaccines (1 of 3 - 19+ 3-dose series) 2009 Influenza Vaccines (#1) 2023 COVID-19 Vaccine (2023-2 5 season) 2023 HIB Vaccines Aged Out No longer eligi ble based on patient's age to complete this topic HPV Vaccines Aged Out No longer eligi ble based on patient's age to complete this topic Hepatitis A Vaccines Aged Out No long er eligible based on patient's age to complete this topic IPV Vaccines Aged Out No longer eligi ble based on patient's age to complete this topic Men B Vaccine Aged Out No longer elig ible based on patient's age to complete this topic Meningococcal Vaccine Aged Out No trudy manuel eligible based on patient's age to complete this topic Pneumococcal Vaccine Aged Out No long er eligible based on patient's age to complete this topic
== END 2024-07-10 14:42 | disposition home or self-care (01) ==
PROVIDERS: PCP Physician Assistant; Visit Provider Physician Assistant
DX: Z20.2 Contact with and (suspected) exposure to infections with a predominantly sexual mode of transmission (principal)

== ENCOUNTER 2024-07-10 14:16 | Outpatient (REF) | payer OTHER, SELFPAY ==
--- OUTSIDE RECORDS SUMMARY | 2024-07-10 15:19 | XMS_ITS | Clinical Summary ---
Author Organization [facility] Address [address] [place] [phone] Phone Care Team Providers Care Communications Coordinator Name Role Phone Unavailable Primary Care Provider [...]
[2024-07-11 03:40] LABS: HIV AB/AG Nonreactive (Nonreactive); HIV Num 1 0.08 S/CO (0.00-0.99)
[2024-07-11 13:23] LABS: CT PCR NOT DETECTED (Not Detect.); NG PCR NOT DETECTED (Not Detect.)
== END 2024-07-10 14:17 | disposition home or self-care (01) ==
LOC: HO.HMGCLDS 14:16
PROVIDERS: PCP Physician Assistant; Visit Provider Physician Assistant
DX: Z20.2 Contact with and (suspected) exposure to infections with a predominantly sexual mode of transmission (principal)
CPT/HCPCS: 36415; 87389; 87491; 87591

== ENCOUNTER 2024-07-10 14:39 | Outpatient (REF) | payer OTHER, SELFPAY | END 2024-07-10 14:40 | disposition home or self-care (01) | LOC: HO.LAB 14:39 | PROVIDERS: Visit Provider Physician Assistant | DX: Z13.89 Encounter for screening for other disorder (principal) ==

== ENCOUNTER 2025-02-19 16:29 | Outpatient (AMB) | payer OTHER, SELFPAY ==
[2025-02-19 16:36] VITALS: BP 138/86; PULSE 75; RESP 18; O2SAT 98; BMI 28.0
--- NOTE | 2025-02-19 16:36 | A.OFFPC_ITS ---
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: No Accompanied by: Self / Same As Patient Allergies No Known Allergies Allergy (Verified 02/19/25 16:39) Medication List - Last Reconciled 02/19/25 by Diamante Camejo MD No Known Home Meds Tobacco use date assessed: 02/19/25 Dental Screening Dental Screen Date: 02/19/25 Did you have a dental visit in the last 12 months?: No Did you have a dental problem in the last 6 months where you did not have access to dental care?: No Was dental information given to patient?: Patient has dentist HPI HPI Comments History of Present Illness Details The patient is a 34 year old male with PMH of MDD, BOBO presenting for an annual physical exam and influenza vaccination. He does not take any medications. The patient has a history of elevated liver enzymes and high cholesterol. His liver enzymes were noted to be improving on prior labs, which is attributed to a significant weight loss of about 30-35 pounds since March 2023. The patient's weight loss was unintentional, occurring during a period of de pression following multiple bereavements, including the loss of his grandfather, other family members, a friend, and pets. During that time, he experienced a loss of appetite. He reports he is doing well now. He has a history of anxiety and previously saw a provider who offered medication, which he declined due to experiencing sleepiness and personal aversion to medications. His last Tdap vaccination was in 2017, and he is not due until 2027. He received three COVID-19 vaccine shots in 2020. He denies any family history of colon cancer. 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 1. Little interest or pleasure in doing things: not at all 2. Feeling down, depressed, or hopeless: not at all 3. Trouble falling or staying asleep, or sleeping too much: not at all 4. Feeling tired or having little energy: not at all 5. Poor appetite or overeating: not at all 6. Feeling bad about yourself - or that you are a failure or have let yourself or your family down: not at all 7. Trouble concentrating on things, such as reading the newspaper or watching television: not at all 8. Moving or speaking so slowly that other people could have noticed. Or the opposite - being so fidgety or restless that you have been moving around a lot more than usual: not at all 9. Thoughts that you would be better off or of hurting yourself in some way: not at all Total score: 0 Source: Developed by Drs. Yohannes Fabian, Nelly Gill, Brendan Handley and colleagues, with an educational joyce from [employer]. Thrive Questionnaire Date Thrive assessed: 02/19/25 I am a: Patient What is your living situation today?: I have a steady place to live Within the past 12 months, did the food you bought not last and you didn't have the money to get more?: I choose not to answer this question Within the past 12 months, did you worry whether your food would run out before you got money to buy more?: I choose not to answer this question Do you have trouble paying for medicines?: No Do you have trouble getting transportation to medical appointments?: No Do you have trouble paying your heating and electricity bill?: No Do you have trouble taking care of your child, family member or friend?: No Do you have trouble with day-to-day activities such as bathing, preparing meals, shopping, managing finances, etc.?: No Are you currently unemployed and looking for a job?: No Are you interested in more education?: Yes Please select the resources that you would like help with: None Currently or been in a relationship where the following occur: No concerns reported THRIVE Score: 0 AUDIT C Alcohol Use Questionnaire (AUDIT-C) 1. How often do you have a drink containing alcohol?: Never Total Score: 0 BOBO-7 AMB Questionnaire BOBO-7 Date BOBO - 7 assessed: 02/19/25 Feeling nervous, anxious, or on edge: 0 = Not at all Not being able to stop or control worryin = Not at all Worrying too much about different things: 0 = Not at all Trouble relaxin = Not at all Being so restless that it is hard to sit still: 0 = Not at all Becoming easily annoyed or irritable: 0 = Not at all Feeling afraid as if something awful might happen: 0 = Not at all Total BOBO-7 score (0-4 normal; 5-9 mild; 10-14 moderate; 15-21 severe): 0 Source: Developed by Drs. Yohannes Fabian, Nelly Gill, Brendan Handley and colleagues, with an educational joyec from [employer]. Review of Systems Const Details: Positives besides what was mentioned in HPI are in BOLD Constitutional: No Weight Change, No Fever, No Chills, No Night Sweats, No Fatigue, No Malaise ENT/Mouth: No Hearing Changes, No Ear Pain, No Nasal Congestion, No Sinus Pain, No Hoarseness, No sore throat, No Rhinorrhea, No Swallowing Difficulty Eyes: No Eye Pain, No Swelling, No Redness, No Foreign Body, No Discharge, No Vision Changes Cardiovascular: No Chest Pain, No SOB, No PND, No Dyspnea on Exertion, No Orthopnea, No Claudication, No Edema, No Palpitations Respiratory: No Cough, No Sputum, No Wheezing, No Smoke Exposure, No Dyspnea Gastrointestinal: No Nausea, No Vomiting, No Diarrhea, No Constipation, No Pain, No Heartburn, No Anorexia, No Dysphagia, No Hematochezia, No Melena, No Flatulence, No Jaundice Genitourinary: No Dysmenorrhea, No DUB, No Dyspareunia, No Dysuria, No Urinary Frequency, No Hematuria, No Urinary Incontinence, No Urgency, No Flank Pain, No Urinary Flow Changes, No Hesitancy Musculoskeletal: No Arthralgias, No Myalgias, No Joint Swelling, No Joint Stiffness, No Back Pain, No Neck Pain, No Injury History Skin: No Skin Lesions, No Pruritis, No Hair Changes, No Breast/Skin Changes, No Nipple Discharge Neuro: No Weakness, No Numbness, No Paresthesias, No Loss of Consciousness, No Syncope, No Dizziness, No Headache, No Coordination Changes, No Recent Falls Psych: No Anxiety/Panic, No Depression, No Insomnia, No Personality Changes, No Delusions, No Rumination, No SI/HI/AH/VH, No Social Issues, No Memory Changes, No Violence/Abuse Hx., No Eating Concerns Heme/Lymph: No Bruising, No Bleeding, No Transfusions History, No Lymphadenopathy Endocrine: No Polyuria, No Polydipsia, No Temperature Intolerance Physical exam (Primary Care) Vital Signs: Last Vital Signs Pulse 75 02/19/25 16:36 Resp 18 02/19/25 16:36 BP 138/86 02/19/25 16:36 Pulse Ox 98 02/19/25 16:36 Oxygen Delivery Method Room Air 02/19/25 16:36 BMI result Body Mass Index 28.0 Tobacco/Smoking Status: Tobacco use Status Tobacco use date assessed 02/19/25 02/19/25 16:41 Patient Tobacco Use Status Never used Tobacco 02/19/25 16:41 PHQ-9: PHQ-9 Score PHQ-9: Total score 0 02/19/25 16:41 Thrive Assessment: Date of Thrive Assessment Date Thrive assessed 02/19/25 02/19/25 16:41 Currently or been in a relationship where the following occur: No concerns reported Const Other: Pertinent findings are in BOLD GENERAL APPEARANCE NAD, activity normal for age, well developed/ well nourished, no cyanosis, pallor, or diaphoresis. EYES lids/conjunctiva normal. EARS/NOSE/THROAT Mucous membranes moist, nares normal, lips/teeth normal uvula midline without oral pharyngeal erythema, exudate or swelling TMs normal bilaterally. No lymphangitis/lymphedema. HEAD/NECK normocephalic atraumatic, no facial trauma, neck is supple. RESPIRATORY respiratory effort normal, speaks in full sentences, no tripod position, no accessory muscle use. Lungs clear to auscultation without rhonchi, wheezes, rales CARDIAC Regular rate and rhythm, no edema. ABDOMINAL Soft, ND/NT. No evidence of fluid wave. No pulsatile masses on exam, rebound tenderness, Gallardo sign or pain over Mcburney's point. MUSCLES/EXTREMITIES No abnormal range of motion, no swelling. SKIN Warm, pink and dry. No rashes, dermatoses, petechiae or lesions. NEUROLOGICAL Speech is clear and appropriate. Normal level of consciousness. Gait and coordination are normal. 5/5 strength in all extremities. PSYCH Normal mood and affect. Judgement/competence is appropriate Office Procedures Flu Questionnaire Does the patient have a severe egg allergy?: No Does the patient have severe life threatening allergies?: No Does the patient have a fever or illness today?: No Has the patient ever had Guillain-[place] Syndrome?: No Has the patient ever had any past reaction to a flu shot?: No Immunizations Fluarix [id number] (PF) 45 mcg (15 mcg x 3)/0.5 mL IM syringe Performing Provider: Diamante Camejo MD [facility] [place] [facility] Administered by: CAREY Burns on 02/19/25 16:50 Dose Route Admin Location Dispensed Lot Number Expiration Date [facility] Customer Sales Consultant 0.5 mL IM Left Deltoid 0.5 mL [id number] 09/14/25 [id number] [employer] VIS Given Date VIS Provided VIS Publication Date 02/19/25 Single Vaccine 24 Eligibility Eligibility Date Funding Source Not [facility] Eligible 02/19/25 Private Coding Level of Care Code Est Pt Prev Care [id number]([id number]) Diagnoses MDD (major depressive disorder), recurrent episode, moderate F33.1 Healthcare maintenance Z00.00 Elevated LFTs R79.89 Time Spent (min) 20 Assessment & Plan Assessment & Plan (1) MDD (major depressive disorder), recurrent episode, moderate: Code(s): F33.1 - Major depressive disorder, recurrent, moderate Category: Medical Plan: - The patient reports a history of situational depression following multiple bereavements, which led to significant weight loss. - He is feeling well at present and managing through his job and social support. - He has a history of anxiety and a preference to avoid medication. - A referral to counseling will be placed as an optional resource should he feel the need for additional support. (2) Healthcare maintenance: Code(s): Z00.00 - Encounter for general adult medical examination without abnormal findings Category: Medical Plan: CBC, CMP, Lipid panel, A1C, TSH w T4. Ordered. Shingles 2 doses when >50 yo. At 50. COVID: two doses. Completed. Pneumococcal: >50 yo. 18-49 with CKD, lung disease, weakened immune system, Heart disease, DM, cochlear implant. At 50. Flu vaccine: Today. Tdap: every 10 years. At 2027. Colonoscopy: 45-75. At 45. AAA: 65 -75. NI[address] CT lun - 80. NI. PSA: 50 -70 every two years. At 50. HIV: Ordered today. HCV: Ordered today. (3) Elevated LFTs: Code(s): R79.89 - Other specified abnormal findings of blood chemistry Category: Medical Plan: - The patient has a history of elevated liver enzymes which have been improving, likely secondary to recent significant weight loss. - Lab work to re-evaluate liver enzymes will be ordered today. - If liver enzymes remain elevated, a further workup will be initiated, including tests for hepatitis A and B, as well as a liver ultrasound. Plan I discussed the plan for today's visit with the patient, which includes an annual physical and an influenza vaccination. We reviewed his immunization status, noting he is up to date on Tdap until 2027. I explained the plan to order fasting labs to recheck his liver enzymes and lipid panel, given his history. We will also screen for HIV and hepatitis C, given his report of sometimes not using protection during sexual activity. I explained that if his liver enzymes remain high, we would proceed with further testing, including hepatitis A and B panels and a liver ultrasound. We discussed his recent history of depression and significant weight loss, which he attributes to multiple bereavements. Although he is feeling much better, I offered to place a referral to counseling as an optional support for him, and we discussed how he could also find a therapist through his insurance. He expressed a past negative experience with medication for anxiety and a preference for non- pharmacological approaches. I provided extensive dietary counseling, advising him to avoid sugar, especially high-fructose corn syrup, and to limit bread intake. Orders: Orders Lipid Panel Today Z00.00 - Encounter for general adult medical examination without abnormal findings HIV Ab/Ag Today Z00.00 - Encounter for general adult medical examination without abnormal findings Hepatitis C Antibody Reflex Today Z00.00 - Encounter for general adult medical examination without abnormal findings Comprehensive Met. Panel Today Z00.00 - Encounter for general adult medical examination without abnormal findings Complete Blood Count no Diff Today Z00.00 - Encounter for general adult medical examination without abnormal findings TSH reflex Free T4 Today Z00.00 - Encounter for general adult medical examination without abnormal findings Influenza [id number] Immunization Today Z23 - Encounter for immunization Referrals Counseling Referral F33.1 - Major depressive disorder, recurrent, moderate
--- OUTSIDE RECORDS SUMMARY | 2025-02-19 19:54 | XMS_ITS | Clinical Summary ---
Author Organization [facility] Address [address] [place] [address] Phone Care Team Providers Care Payment Collector Name Role Phone Unavailable Primary Care Provider [...] of 3 - 19+ 3-dose series) 2009 HPV Vaccines (1 - 3-dose SCD M series) 2017 Influenza Vaccines (#1) 2024 COVID-19 Vaccine ( - 2024-2 6 season) 2024 HIB Vaccines Aged Out No longer eligi [...]
== END 2025-02-19 17:03 | disposition home or self-care (01) ==
LOC: HO.HMCH 16:30
PROVIDERS: PCP Physician Assistant; Visit Provider Internal Medicine
DX: Z00.00 Encounter for general adult medical examination without abnormal findings (principal); F33.1 Major depressive disorder, recurrent, moderate; R79.89 Other specified abnormal findings of blood chemistry; Z23 Encounter for immunization

== ENCOUNTER → 2025-02-19 16:29 | Outpatient (BNVA) | payer OTHER, SELFPAY | PROVIDERS: PCP Physician Assistant; Visit Provider Internal Medicine | DX: Z00.00 Encounter for general adult medical examination without abnormal findings (principal); Z23 Encounter for immunization; F33.1 Major depressive disorder, recurrent, moderate; R79.89 Other specified abnormal findings of blood chemistry | CPT/HCPCS: 90471; 90656; 96127 ==